=== PATIENT | female | born 1970 ===

== ENCOUNTER 2018-07-02 22:09 | Emergency (ER) | payer SELFPAY ==
[2018-07-02 22:42] VITALS: O2SAT 99
[2018-07-02 23:44] VITALS: TEMP 101.1
--- NOTE | 2018-07-02 23:51 | C.PDOC ---
History Of Present Illness 48 year old female presents to the ED c/o sore throat and difficulty swallowing for the past 2 days. Patient reports she developed fever today. Patient denies cough, congestion, headache, rash, CP, SOB, wheezing, sick contacts. Time Seen by Provider: 07/02/18 22:52 Chief Complaint (Nursing): Fever History Per: Patient History/Exam Limitations: no limitations Onset/Duration Of Symptoms: Days (2) Current Symptoms Are (Timing): Still Present Location Of Pain: Throat Associated Symptoms: Fever, Sore Throat Ear Symptoms: Bilateral: None Recent travel outside of the [place]: No Additional History Per: Patient Past Medical History Reviewed: Historical Data, Nursing Documentation, Vital Signs Vital Signs: Last Vital Signs Temp 101.1 F H 07/02/18 23:44 Pulse 96 H 07/02/18 22:31 Resp 20 07/02/18 22:31 BP 120/77 07/02/18 22:31 Pulse Ox 99 07/02/18 22:31 Primary Care Provider: FAMILY PROVIDER,NO - Medical History PMH: No Chronic Diseases Surgical History: No Surg Hx Family History: States: Unknown Family Hx - Social History Hx Alcohol Use: No Hx Substance Use: No - Immunization History Hx Tetanus Toxoid Vaccination: No Hx Influenza Vaccination: No Hx Pneumococcal Vaccination: No Review Of Systems Constitutional: Positive for: Fever. Negative for: Chills ENT: Positive for: Throat Pain. Negative for: Nose Discharge, Nose Congestion Cardiovascular: Negative for: Chest Pain Respiratory: Negative for: Cough, Shortness of Breath, Wheezing Gastrointestinal: Negative for: Vomiting Musculoskeletal: Negative for: Neck Pain Skin: Negative for: Rash Neurological: Negative for: Weakness, Numbness, Headache Physical Exam - Physical Exam Appears: Non-toxic, No Acute Distress Skin: Normal Color, Warm, Dry, No Rash Head: Atraumatic, Normacephalic Eye(s): bilateral: Normal Inspection Ear(s): Bilateral: Normal Nose: No Discharge Oral Mucosa: Moist Throat: Erythema, No Exudate, Other (enlarged tonsils) Neck: Normal ROM, Supple Lymphatic: Adenopathy (tender anterior cervical and submandibular) Chest: Symmetrical Cardiovascular: Rhythm Regular Respiratory: Normal Breath Sounds, No Rales, No Rhonchi, No Wheezing Neurological/Psych: Oriented x3, Normal Speech, Normal Cognition Gait: Steady ED Course And Treatment O2 Sat by Pulse Oximetry: 99 (ON RA) Pulse Ox Interpretation: Normal Progress Note: Plan: - Motrin 600 mg PO. - Penicillin 500 mg PO. Patient is advised to continue taking NSAIDs for pain management, first dose of antibiotics given in the ED. Disposition - Disposition Referrals: Robbie Calvin [Outside] Disposition: HOME/ ROUTINE Disposition Time: 23:48 Condition: STABLE Additional Instructions: Please follow up in clinic Take medications as directed Return to ER if worse Prescriptions: Ibuprofen [Motrin] 600 mg PO Q6H #20 tab Penicillin VK [Penicillin VK Tab] 2 tab PO BID #28 tab Instructions: Strep Throat (DC) Forms: [employer] (Greenlandic) Print Language: CHINESE - Clinical Impression Clinical Impression: Pharyngitis - PA / [employer] / Resident Statement MD/DO has reviewed & agrees with the documentation as recorded. - Scribe Statement The provider has reviewed the documentation as recorded by the Scribe Rob Melara All medical record entries made by the Scribe were at my direction and personally dictated by me. I have reviewed the chart and agree that the record accurately reflects my personal performance of the history, physical exam, medical decision making, and the department course for this patient. I have also personally directed, reviewed, and agree with the discharge instructions and disposition.
[2018-07-03 00:06] VITALS: BP 113/73; PULSE 97; RESP 18
== END 2018-07-03 00:07 | disposition home or self-care (01) ==
LOC: C.ER 22:09
DX: J02.9 Acute pharyngitis, unspecified (principal)